=== PATIENT | male | born 1960 | race Caucasian/White ===

== ENCOUNTER → 2024-11-26 | Outpatient (CLI) | payer MEDICARE, OTHER ==
[2024-11-26 15:40] VITALS: BP 173/70; PULSE 84; RESP 16; TEMP 98.4
--- NOTE | 2024-11-26 16:19 | P.SLEEP ---
History of Present Illness DATE: 11/26/2024 CONSULTATION/NEW PATIENT EVALUATION HISTORY OF PRESENT ILLNESS/SLEEP-WAKE EVALUATION: 64-year-old gentleman had be en evaluated in the sleep center for obstructive sleep apnea hypopnea syndrome. Obstructive sleep apnea for about 20 years. He continued to use his CPAP equipment every night. CPAP unit about 2-year-old. I checked CPAP unit. CPAP pressure is 8 cm of water. Usage is 100% of nights, average 7.1 hours per night. Leak increased to 38 L apnea-hypopnea index is 0.7 which is perfect. SLEEP SCHEDULE: Usually sleep schedule from midnight until 8 AM. FALLING ASLEEP: No problems with falling asleep. DURING SLEEP: No snoring on CPAP. Patient may wake up from sleep once to use restroom. No history of hypnogogical hallucinations, sleep paralysis, or cataplexy. DURING THE DAY/WAKE STATE: No sleepiness during the day. [place] sleepiness scale is 4. Patient does not take naps. PAST MEDICAL HISTORY: Hypertension, diabetes mellitus, history of atrial fibrillation, hyperlipidemia. PAST SURGICAL HISTORY: Cardioversion, cardiac ablation. MEDICATIONS: Please see below. SOCIAL HISTORY: Please see below. FAMILY HISTORY: Please see below. REVIEW OF SYSTEMS: No snoring on CPAP, no sleepiness. No fevers. No double vision. No recent chest pain. No shortness of breath. No abdominal pain. No bleeding episodes. No blood in urine. No seizure episodes. PHYSICAL EXAMINATION: GENERAL: A pleasant patient without any distress. VITAL SIGNS: Please see below weight 258 pounds, BMI 35.9. HEENT: PERRLA, EOMI. Evaluation of oropharynx showed tongue protrudes midline, low position of soft palate Mallampati 34. NECK: Supple. No JVD. Thyroid is not palpable. 17.5 inches in circumference. LUNGS: Clear to percussion and to auscultation. Good air exchange. No wheezing or rhonchi. HEART: S1, S2 regular. No murmurs, gallops or rubs. ABDOMEN: Soft and nontender. Bowel sounds are present. No organomegaly appreciated. EXTREMITIES: No clubbing or cyanosis. AUDITING CONTROL CLERK: Awake, alert, and oriented x3. Cranial nerves 2 to 7 intact. There is no fasciculation or atrophy noted. No focal deficits observed. ASSESSMENT: 1. Obstructive sleep apnea hypopnea syndrome for about 20 years. Patient continued to use his CPAP equipment every night for the whole night, normal apnea hypopnea index reading from CPAP unit. No sleepiness. Low position of soft palate Mallampati 3/4, wide neck 17.5 inches in circumference. 2. Obesity, BMI 35.9. 3. Hypertension. 4. Diabetes mellitus. 5 history of atrial fibrillation, status post cardioversion and cardiac ablation. 6 . Hyperlipidemia. PLAN: 1. Prescription for all necessary CPAP supplies. 2. Patient will continue to use CPAP equipment every night for the whole night. 3. Preferable position during sleep on the side. 4. No driving if patient feels any sleepiness. Patient is aware of civil and criminal liability for unsafe driving. 5. Sleep hygiene with regular sleep time for at least 7.5-8 hours. 6. Watching and losing weight. 7. We will get results of previous sleep studies. 8. Follow-up visit in 8 months or earlier if patient has any problems. Thank you very much for referring this patient for consultation. Sincerely, Wade Lopez MD, PhD, FAASM. Diplomat of [place] [employer], Sleep Medicine Board by [place] [employer] [employer] [facility]yn [facility] [place] cc: Osvaldo Adams DO Past Medical History Past Medical History: Atrial Fibrillation, Diabetes Mellitus, Hypertension History of Any Multi-Drug Resistant Organisms: None Reported Past Surgical History: Appendectomy, Cardiac Ablation Additional Past Surgical History / Comment(s): CARDIO VERSION Past Anesthesia/Blood Transfusion Reactions: No Reported Reaction Past Psychological History: No Psychological Hx Reported Smoking Status: Never smoker Past Alcohol Use History: Rare Past Drug Use History: None Reported - Past Family History Mother Family Medical History: Chest Pain / Angina, Coronary Artery Disease (CAD), Hyperlipidemia, Hypertension Father Family Medical History: CVA/TIA, Diabetes Mellitus Additional Family Medical History / Comment(s): SNORING Medications and Allergies Home Medications Medication Instructions Recorded Confirmed Type Dapagliflozin Propanediol [Farxiga] 10 mg PO DAILY 11/26/24 11/26/24 History Diltiazem Cd [Cardizem CD] 240 mg PO DAILY 11/26/24 11/26/24 History Lisinopril-Hctz 20-12.5 mg 20 mg PO DAILY 11/26/24 11/26/24 History [Zestoretic 20-12.5] Rivaroxaban [Xarelto] 20 mg PO DAILY 11/26/24 11/26/24 History Rosuvastatin [Crestor] 10 mg PO DAILY 11/26/24 11/26/24 History Semaglutide [Ozempic] 0.25 mg SQ WEEKLY 11/26/24 11/26/24 History metFORMIN HCL [metFORMIN HCL ER 1,000 mg PO BID 11/26/24 11/26/24 History Osmotic] Physical Exam Vitals: Vital Signs Temp Pulse Resp BP Pulse Ox 11/26/24 15:39 98.4 F 84 16 173/70 97 Intake and Output 11/26/24 11/26/24 11/26/24 06:59 14:59 22:59 Other: Weight 117.027 kg Sleep Note - Sleep Data ESS Total: 4 - Sleep Note Sleep Note: Temperature: 98.4 F Pulse Rate: 84 Respiratory Rate: 16 Blood Pressure: 173/70 SpO2: 97 Height: 5 ft 11 in Weight: 117.027 kg BMI: Neck Circumference: 17.5
== END ==
LOC: 3 N SLEEP 14:49
PROVIDERS: ATTEND Internal Medicine
DX: G47.33 Obstructive sleep apnea (adult) (pediatric) (principal); I10 Essential (primary) hypertension; E11.9 Type 2 diabetes mellitus without complications; E78.5 Hyperlipidemia, unspecified; E66.9 Obesity, unspecified; Z86.79 Personal history of other diseases of the circulatory system; Z68.35 Body mass index [BMI] 35.0-35.9, adult; Z99.89 Dependence on other enabling machines and devices; Z98.890 Other specified postprocedural states
CPT/HCPCS: 99211